=== PATIENT | female | born 1940 | race Caucasian/White ===

== ENCOUNTER → 2018-05-14 | Outpatient (CLI) | payer MEDICARE, OTHER ==
--- NOTE | 2018-05-14 14:40 | Diagnostic Imaging Report ---
INDICATION: Cough and congestion x3 months. EXAMINATION: PA and lateral chest. FINDINGS: Heart size and pulmonary vascularity are normal. Lungs are clear. There are no effusions or pneumothoraces. IMPRESSION: Negative chest. Dictated by: Dictated on workstation # [id number]
== END ==
LOC: RAD 13:41
PROVIDERS: ATTEND Nurse Practitioner Family
DX: R05 Cough (principal); R09.89 Other specified symptoms and signs involving the circulatory and respiratory systems
CPT/HCPCS: 71046

== ENCOUNTER → 2018-09-17 | Outpatient (CLI) | payer MEDICARE, OTHER ==
--- NOTE | 2018-09-17 10:06 | Diagnostic Imaging Report ---
PROCEDURE: US carotid duplex, bilateral. TECHNIQUE: Multiple real-time grayscale images were obtained over the carotid arteries in various projections, bilaterally. Additional spectral analysis and color Doppler duplex images were also obtained. INDICATION: Dizziness. FINDINGS: There are no focally elevated velocities in either internal carotid artery. The ICA/CCA ratios are within normal limits, bilaterally. There is antegrade flow in the vertebral arteries, bilaterally. Grayscale images demonstrate minimal carotid plaque, bilaterally. There are bilateral thyroid nodules. IMPRESSION: Minimal bilateral carotid plaque however spectral analysis shows no evidence of a hemodynamically significant stenosis in either internal carotid artery. Bilateral thyroid nodules. This could be better evaluated with dedicated thyroid ultrasound. Parameters based on the consensus panel Sharma-Scale and Doppler ultrasound criteria published May 2003, Radiology, Volume 229. DOPPLER (peak systolic velocity M/S Right Left CCA .63 .70 ICA Proximal .41 .40 ICA Mid .55 .48 ICA Distal .66 .58 RATIO 1.0 .83 ECA .87 .72 VERT .35 .34 Dictated by: Dictated on workstation # [id number]
== END ==
LOC: RAD 08:47
PROVIDERS: ATTEND Nurse Practitioner Family
DX: E04.2 Nontoxic multinodular goiter (principal); R42 Dizziness and giddiness
CPT/HCPCS: 93880

== ENCOUNTER → 2018-09-24 | Outpatient (CLI) | payer MEDICARE, OTHER ==
--- NOTE | 2018-09-24 14:38 | Diagnostic Imaging Report ---
PROCEDURE: US Thyroid. TECHNIQUE: Multiple real-time grayscale images were obtained of the thyroid in various projections. INDICATION: Thyroid nodule is noted on carotid ultrasound. COMPARISON: Comparison is made with carotid Doppler from 09/17/2018. FINDINGS: Right lobe of the thyroid measures 4.3 mm x 1.7 x 1.6 cm and the left lobe measures 4.9 x 3.1 x 2.9 cm. There are bilateral thyroid nodules. There is a large mass involving the left lobe of the thyroid which appears to be primarily cystic but does demonstrate some mild nodularity along the jones. This measures 2.9 x 3.0 x 3.9 cm. Right-sided thyroid nodules are present, the largest approximately 1.0 x 1.1 x 0.9 cm. Macrocalcifications in the right lobe larger nodule is seen. No microcalcifications are seen. IMPRESSION: Large primarily fluid containing mass involving the left lobe of the thyroid with some nodularity along the wall. Aspiration of the fluid could be performed and sent for cytology, if clinically indicated. Dictated by: Dictated on workstation # [id number]
== END ==
LOC: RAD 12:00
PROVIDERS: ATTEND Nurse Practitioner Family
DX: E04.2 Nontoxic multinodular goiter (principal)
CPT/HCPCS: 76536

== ENCOUNTER → 2018-10-18 | Outpatient (CLI) | payer MEDICARE, OTHER ==
[~2018-10-18] VITALS: Ht 157.5 cm; Wt 76.2 kg
--- NOTE | 2018-10-20 07:54 | Diagnostic Imaging Report ---
Indication: Thyroid cyst. Findings: Ultrasound guidance was provided for Dr. Seymour during aspiration of a left thyroid cyst. Impression: Ultrasound guidance as described. Dictated by: Dictated on workstation # [id number]
== END ==
LOC: RAD 10:20
PROVIDERS: ATTEND Otolaryngology Otolaryngology/Facial Plastic Surgery
DX: E04.1 Nontoxic single thyroid nodule (principal)
CPT/HCPCS: 76942

== ENCOUNTER → 2020-01-12 | Outpatient (CLI) | payer MEDICARE, OTHER ==
--- NOTE | 2020-01-12 15:40 | Diagnostic Imaging Report ---
PROCEDURE: US Thyroid. TECHNIQUE: Multiple real-time grayscale images were obtained of the thyroid in various projections. INDICATION: Thyroid nodules, follow-up. COMPARISON: Correlation is made with prior thyroid ultrasound from 09/24/2018. FINDINGS: Right lobe of the thyroid measures 4.2 x 2.1 x 1.7 cm and the left lobe measures 4.4 x 1.7 x 1.7 cm. Isthmus is 3 mm in thickness. Hypoechoic nodules in the right lobe of the thyroid are stable measuring approximately 1 cm or less. A dominant primarily cystic nodule in the left lobe has decreased in size measuring 1.8 x 1.6 x 1.4 cm. This compares with 3.9 x 2.9 x 3.0 cm on prior. Tiny hypoechoic nodule in upper pole of left lobe is noted measuring approximately 6 mm in size. IMPRESSION: Stable right lobe thyroid nodules. The primarily cystic nodule in left lobe of thyroid has significantly decreased in size when compared with examination from 09/24/2018. Dictated by: Dictated on workstation # [id number]
== END ==
LOC: RAD 12:27
PROVIDERS: ATTEND Nurse Practitioner Family
DX: E04.2 Nontoxic multinodular goiter (principal)
CPT/HCPCS: 76536